=== PATIENT | female | born 1985 | race Caucasian/White ===

== ENCOUNTER 2023-08-07 19:46 | Emergency (ER) | payer OTHER ==
[~2023-08-07] VITALS: Ht 172.7 cm; Wt 83.9 kg
[2023-08-07 20:53] VITALS: BP 128/74; TEMP 98.1
[2023-08-07] MEDS ORDERED: IBUP-1957 PO (21:13)
[2023-08-07] MEDS ORDERED: ERYT3.5O9 RIGHTEYE (21:13)
[2023-08-07 21:40] VITALS: O2SAT 98
== END 2023-08-07 21:42 | disposition home or self-care (01) ==
LOC: ER 19:49
DX: H10.89 Other conjunctivitis (principal)